=== PATIENT | male | born 1995 | race African-American/Black ===

== ENCOUNTER 2024-04-16 17:58 | Emergency (ER) | payer MEDICAID ==
[~2024-04-16] VITALS: Ht 180.3 cm; Wt 62.0 kg
[2024-04-16 18:06] VITALS: O2SAT 99
[2024-04-16] MEDS ORDERED: RISP2 MT (18:17)
[2024-04-16 18:24] VITALS: BP 118/74; PULSE 100; RESP 20; TEMP 98.7
== END 2024-04-16 18:23 | disposition home or self-care (01) ==
LOC: ER 17:58
DX: Z76.0 Encounter for issue of repeat prescription (principal); F41.9 Anxiety disorder, unspecified; Z98.890 Other specified postprocedural states
CPT/HCPCS: 99281

== ENCOUNTER 2024-04-26 14:31 | Emergency (ER) | payer MEDICAID ==
[~2024-04-26] VITALS: Ht 180.3 cm; Wt 60.0 kg
[~2024-04-26 14:31] MED LIST: RISP2 MT
[2024-04-26 14:49] VITALS: BP 127/96; PULSE 100; RESP 16; TEMP 98.9; O2SAT 100
[2024-04-26] MEDS ORDERED: RISP2 MT (15:01)
== END 2024-04-26 15:39 | disposition home or self-care (01) ==
LOC: ER 14:31
DX: Z76.0 Encounter for issue of repeat prescription (principal)
CPT/HCPCS: 99281

== ENCOUNTER 2024-05-23 12:20 | Emergency (ER) | payer MEDICAID ==
[~2024-05-23] VITALS: Ht 180.3 cm; Wt 135.0 kg
[2024-05-23 12:30] VITALS: O2SAT 97
[2024-05-23] MEDS ORDERED: RISP2 MT (13:43)
[2024-05-23 14:16] VITALS: BP 103/65; PULSE 74; RESP 16; TEMP 36.83628; O2SAT 100
== END 2024-05-23 14:17 | disposition home or self-care (01) ==
LOC: ER 13:46
DX: Z76.0 Encounter for issue of repeat prescription (principal); F41.9 Anxiety disorder, unspecified; F32.A Depression, unspecified; Z98.890 Other specified postprocedural states
CPT/HCPCS: 99281; Z7610

== ENCOUNTER 2024-06-09 12:54 | Emergency (ER) | payer MEDICAID ==
[~2024-06-09] VITALS: Ht 180.3 cm; Wt 62.0 kg
[2024-06-09 13:08] VITALS: TEMP 98.7; O2SAT 99
[2024-06-09 14:31] VITALS: BP 119/86; PULSE 79; RESP 16; O2SAT 100
== END 2024-06-09 14:32 | disposition home or self-care (01) ==
LOC: ER 12:54
DX: J06.9 Acute upper respiratory infection, unspecified (principal); F32.A Depression, unspecified; F41.9 Anxiety disorder, unspecified; Z20.822 Contact with and (suspected) exposure to COVID-19; Z98.890 Other specified postprocedural states
CPT/HCPCS: 71045; 87426; 99284